=== PATIENT | male | born 1960 | race Two or more races ===

== ENCOUNTER 2025-08-09 16:47 | Emergency (ER) | payer OTHER ==
[~2025-08-09] VITALS: Ht 172.7 cm; Wt 68.0 kg
[2025-08-09] MEDS: IV NS 0.9% 1,000 ML BAG IV ONE (17:29)
[2025-08-09 17:36] LABS: PLATELET COUNT (AUTO) 190 K/uL (150-450); RED BLOOD CELL COUNT(AUTO) 5.83 MIL/uL (4.5-6.0); RED CELL DISTRIBUTION WIDTH 14.3 % (11.5-15.0); WHITE BLOOD COUNT (AUTO) 5.7 K/uL (4.3-11.0)
[2025-08-09 17:45] LABS: CALCIUM, SERUM 9.2 mg/dL (8.5-10.1); CREATININE 0.9 mg/dL (0.6-1.3); SODIUM SERUM 139.0 mmol/L (136-145); UREA NITROGEN, BLOOD 18.0 mg/dL (7-18)
[2025-08-09 17:52] LABS: APPEARANCE,URINE TURBID (CLEAR)
[2025-08-09 17:54] LABS: ASPARTATE AMINOTRANSFERASE 22.0 U/L (15-37); TOTAL PROTEIN, SERUM 7.6 g/dL (6.4-8.2)
[2025-08-09 18:15] LABS: SQUAMOUS EPITHELIAL CELL,UR Few /HPF (None Seen)
[2025-08-09 20:17] VITALS: BP 135/85; TEMP 98; O2SAT 98
[2025-08-09 20:28] LABS: INR 1.01 (0.91-1.10)
== END 2025-08-09 20:18 | disposition home or self-care (01) ==
LOC: ER 16:47
DX: R31.0 Gross hematuria (principal); N20.0 Calculus of kidney; K57.30 Diverticulosis of large intestine without perforation or abscess without bleeding; I10 Essential (primary) hypertension; N40.0 Benign prostatic hyperplasia without lower urinary tract symptoms
CPT/HCPCS: 99284; 74176; 96360; 93005; 85025; 83690; 81001; 36415; 80053; 84484 ×2; 85730; J7030